=== PATIENT | female | born 1985 | race Caucasian/White ===

== ENCOUNTER 2017-03-24 05:47 | Observation (INO) ==
--- NOTE | 2017-03-24 06:03 | Emergency Department Note ---
Disposition Clinical Impression: Acute appendicitis Qualifiers: Acute appendicitis type: unspecified acute appendicitis type Qualified Code(s) : K35.80 - Unspecified acute appendicitis Disposition: Admitted As Inpatient Condition: Good Time of Disposition: 06:56 General Adult HPI - General Chief complaint: ED Abdominal Pain Stated complaint: states has enlarged appendix and gallstones Time Seen by Provider: 03/24/17 05:55 Source: patient Limitations: no limitations Nursing Notes Reviewed: Yes Vital Signs Reviewed: Yes - History of Present Illness HPI Narrative: Two-day history of right upper and right lower quadrant pain. Also nausea associated. Has tried [id number] pain medication as well as pain medication prescribed by her provider which she is unaware of the name of with no relief. No alleviating or provoking factors. Pain Scale: 8 - Related Data Previous Rx's Medication Instructions Recorded Ondansetron ODT [Zofran ODT] 4 mg SL Q8HR PRN #10 tab.rapdis 11/06/15 Phenazopyridine HCl [Pyridium] 200 mg PO TIDAC PRN #6 tab 11/06/15 Sulfamethoxazole/Trimeth DS 1 each PO BID #14 tablet 11/06/15 [Bactrim DS] Cyclobenzaprine [Flexeril] 10 mg PO HS PRN #10 tablet 04/30/16 Ibuprofen [Motrin] 600 mg PO Q6HR PRN #20 tab 04/30/16 Allergies Allergy/AdvReac Type Severity Reaction Status Date / Time No Known Allergies Allergy Verified 11/06/15 02:43 All systems ED: reviewed and negative except as stated. Constitutional: Denies: fever, chills Cardiovascular: Denies: chest pain, palpitations, dyspnea on exertion, edema, syncope Respiratory: Denies: cough, dyspnea, wheezes, hemoptysis, stridor Gastrointestinal: Reports: abdominal pain, nausea, vomiting. Denies: diarrhea, hematemesis, hematochezia Genitourinary: Reports: hematuria (One episode yesterday.). 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 Absent: scleral icterus - ENT ENT exam: normal exam, normal oropharynx, mucous membranes moist - Neck Neck exam: Present: normal inspection, full ROM, trachea midline. Absent: meningismus, lymphadenopathy - Chest Chest inspection: Present: normal inspection, symmetric chest wall rise - Respiratory Respiratory exam: Present: normal lung sounds bilaterally. Absent: respiratory distress - Cardiovascular Cardiovascular exam: Present: regular rate, normal rhythm, normal heart sounds - Abdominal Exam Abdominal exam: Present: soft, tenderness (Right upper and right lower quadrant. Appears worse in the right lower quadrant.), psoas sign, Issa's sign, tenderness at McBurney's Point. Absent: organomegaly - Extremities Exam Extremities exam: Present: normal inspection, full ROM. Absent: tenderness, pedal edema - Neurological Exam Neurological exam: Present: alert, oriented X3 - Psychiatric Psychiatric exam: Present: normal affect, normal mood - Skin Skin exam: Present: warm, dry, intact, normal color Course Course Narrative: Female patient complaining of right-sided abdominal pain presented to her primary care physician yesterday. A CT and lab work was done. She was found to have a mildly enlarged appendix with no periappendiceal stranding diagnostic of acute appendicitis as well as cholelithiasis. She states that she went home and was able to eat chicken tenders last night but has become nauseated and the abdominal pain is gone significantly worse. She appears in pain while she is resting in bed. She does have right upper and right lower quadrant abdominal pain. It appears as if the right lower quadrant is more tender than the right upper quadrant. She is nonfebrile she is here. Her lab work is unremarkable. We will provide patient with pain relief and antinausea medication will get a surgical consult. - Consultations Consultation #1: Spoke with Dr Rangel he will see patient in emergency department. Time: 06:36 Vital Signs Temperature 97.9 F 03/24/17 05:50 Pulse Rate 134 03/24/17 05:50 Respiratory Rate 18 03/24/17 05:50 Blood Pressure 126/75 03/24/17 05:50 O2 Sat by Pulse Oximetry 98 03/24/17 05:50 Temperature 97.9 F 03/24/17 05:50 Pulse Rate 97 03/24/17 06:35 Respiratory Rate 18 03/24/17 06:35 Blood Pressure 132/66 03/24/17 06:35 O2 Sat by Pulse Oximetry 100 03/24/17 06:35 Oxygen Delivery Oxygen Delivery Room Air Medical Decision Making - Lab Data Result diagrams: 03/24/17 06:17 03/24/17 06:17 Lab Results 03/24/17 03/24/17 03/24/17 Range/Units 06:00 06:00 06:17 WBC 5.2 (4.3-11.1) K/mcL RBC 4.92 (3.82-4.97) M/mcL Hgb 14.6 (11.5-15.4) g/dL Hct 42.9 (35.3-44.9) % MCV 87.2 (83.0-100.0) fL MCH 29.7 (28.0-33.3) pg MCHC 34.0 (31.6-35.5) g/dL RDW 12.3 (11.5-14.5) % Plt Count 279 (140-400) K/mcL MPV 9.5 (9.4-12.4) fL Immature Gran % 0.2 (0-4) % Seg Neutrophils % 51.7 % Lymphocytes % 35.6 % Monocytes % 9.6 % Eosinophils % 2.7 % Basophils % 0.2 % Neutrophils # 2.7 (1.6-8.9) K/mcL Lymphocytes # 1.9 (0.6-4.6) K/mcL Monocytes # 0.5 (0.0-1.3) K/mcL Eosinophils # 0.1 (0.0-0.6) K/mcL Basophils # 0.0 (0.0-0.2) K/mcL PT (9.4-12.1) Seconds INR APTT (26.0-36.0) Seconds Sodium (136-145) mEq/L Potassium (3.5-4.5) mEq/L Chloride (98-109) mEq/L Carbon Dioxide (19-29) mEq/L BUN (7-20) mg/dL Creatinine (0.57-1.11) mg/dL Est GFR ( Amer) (> 60) Est GFR (Non-Af Amer) (> 60) BUN/Creatinine Ratio (6-26) Glucose (70-99) mg/dL Calculated Osmolality (280-300) Calcium (8.6-10.8) mg/dL Total Bilirubin (0.2-1.2) mg/dL AST (5-34) Units/L ALT (0-55) Units/L Alkaline Phosphatase (38-126) Units/L Serum Total Protein (6.0-8.3) g/dL Albumin (3.5-5.0) g/dL Globulin (2.4-3.5) g/dL Albumin/Globulin Ratio (1.1-2.2) Urine Color Yellow (Yellow) Urine Clarity Cloudy A (Clear) Urine pH 5.5 (5.0-8.0) pH Units Ur Specific [place] 1.021 (1.010-1.025) Urine Protein Negative (Neg-Trace) mg/dL Urine Glucose (UA) Normal (Normal) mg/dL Urine Ketones 15 H (Negative) mg/dL Urine Blood Negative (Negative) Urine Nitrite Negative (Negative) Urine Bilirubin Negative (Negative) Urine Urobilinogen Normal (Normal) mg/dL Ur Leukocyte Esterase Moderate H (Negative) Urine Microscopic RBC 0-3 (0-3) per hpf Urine Microscopic WBC 15-30 H (0-3) per hpf Ur Squamous Epith Cells Many H (None-Few) per lpf Urine Bacteria Few (None-Few) per hpf Hyaline Casts None Seen (None-Few) per lpf Ur Culture Indicated? YES A (NO) Urine Test Negative (Negative) 03/24/17 03/24/17 Range/Units 06:17 06:17 WBC (4.3-11.1) K/mcL RBC (3.82-4.97) M/mcL Hgb (11.5-15.4) g/dL Hct (35.3-44.9) % MCV (83.0-100.0) fL MCH (28.0-33.3) pg MCHC (31.6-35.5) g/dL RDW (11.5-14.5) % Plt Count (140-400) K/mcL MPV (9.4-12.4) fL Immature Gran % (0-4) % Seg Neutrophils % % Lymphocytes % % Monocytes % % Eosinophils % % Basophils % % Neutrophils # (1.6-8.9) K/mcL Lymphocytes # (0.6-4.6) K/mcL Monocytes # (0.0-1.3) K/mcL Eosinophils # (0.0-0.6) K/mcL Basophils # (0.0-0.2) K/mcL PT 13.9 H (9.4-12.1) Seconds INR 1.3 APTT 32.3 (26.0-36.0) Seconds Sodium 140 (136-145) mEq/L Potassium 3.6 (3.5-4.5) mEq/L Chloride 108 (98-109) mEq/L Carbon Dioxide 22 (19-29) mEq/L BUN 8 (7-20) mg/dL Creatinine 0.84 (0.57-1.11) mg/dL Est GFR ( Amer) > 60 (> 60) Est GFR (Non-Af Amer) > 60 (> 60) BUN/Creatinine Ratio 10 (6-26) Glucose 102 H (70-99) mg/dL Calculated Osmolality 289 (280-300) Calcium 9.5 (8.6-10.8) mg/dL Total Bilirubin 0.5 (0.2-1.2) mg/dL AST 16 (5-34) Units/L ALT 16 (0-55) Units/L Alkaline Phosphatase 55 (38-126) Units/L Serum Total Protein 7.8 (6.0-8.3) g/dL Albumin 4.1 (3.5-5.0) g/dL Globulin 3.7 H (2.4-3.5) g/dL Albumin/Globulin Ratio 1.1 (1.1-2.2) Urine Color (Yellow) Urine Clarity (Clear) Urine pH (5.0-8.0) pH Units Ur Specific [place] (1.010-1.025) Urine Protein (Neg-Trace) mg/dL Urine Glucose (UA) (Normal) mg/dL Urine Ketones (Negative) mg/dL Urine Blood (Negative) Urine Nitrite (Negative) Urine Bilirubin (Negative) Urine Urobilinogen (Normal) mg/dL Ur Leukocyte Esterase (Negative) Urine Microscopic RBC (0-3) per hpf Urine Microscopic WBC (0-3) per hpf Ur Squamous Epith Cells (None-Few) per lpf Urine Bacteria (None-Few) per hpf Hyaline Casts (None-Few) per lpf Ur Culture Indicated? (NO) Urine Test (Negative) Attestation Statement - Attestation Attestation: I examined this patient and my medical decision-making was reviewed with the MEDICAL INSTRUCTOR/PA/Advanced Practice Nurse/Resident Physician. I agree with the documented findings, disposition and treatment plan as described except to the extent set forth below. Patient emergency department accompanied abdominal pain. Patient saw her PCP yesterday who ordered outpatient labs and a CT scan. The CT showed probable cholelithiasis with mild enlargement of the appendix. She states the pain is worsened. Is on her right side. She is nauseated. She cannot vomit. No fever. On exam she is laying in bed crying. Very anxious. Tenderness over the right lower quadrant at McBurney's point. She also has some right upper quadrant tenderness. There is no guarding here. Negative Issa sign. Plan. We will repeat labs. Discuss with surgery.
[2017-03-24] MEDS ORDERED: Ondansetron 4 MG/2 ML VIAL IVP ONE ×2 (06:16→13:49)
[2017-03-24 06:20] LABS: Bilirubin,Urine Negative (Negative); Blood,Urine Negative (Negative); Clarity,Urine Cloudy (Clear); Color,Urine Yellow (Yellow); Glucose,Urine (UA) Normal (Normal); Ketones,Urine 15 mg/dL (Negative); Leukocyte Esterase,Urine Moderate (Negative); Nitrite,Urine Negative (Negative); PH,Urine 5.5 pH Units (5.0-8.0); Protein,Urine Negative (Neg-Trace); Specific Gravity,Urine 1.021 (1.010-1.025); Urobilinogen,Urine Normal (Normal)
[2017-03-24 06:21] LABS: Basophils % 0.2 %; Eosinophils # 0.1 K/mcL (0.0-0.6); Eosinophils % 2.7 %; Hematocrit 42.9 % (35.3-44.9); Hemoglobin 14.6 g/dL (11.5-15.4); Immature Granulocytes % 0.2 % (0-4); Lymphocytes # 1.9 K/mcL (0.6-4.6); Lymphocytes % 35.6 %; Mean Corpuscular Hemoglobin 29.7 pg (28.0-33.3); Mean Corpuscular Volume 87.2 fL (83.0-100.0); Mean Platelet Volume 9.5 fL (9.4-12.4); Monocytes # 0.5 K/mcL (0.0-1.3); Monocytes % 9.6 %; Neutrophils # 2.7 K/mcL (1.6-8.9); Platelet Count 279 K/mcL (140-400); Red Blood Count 4.92 M/mcL (3.82-4.97); Red Cell Distribution Width 12.3 % (11.5-14.5); Segmented Neutrophils % 51.7 %
[2017-03-24 06:22] LABS: Bacteria,Urine Few per hpf (None-Few); Hyaline Casts,Urine None Seen per lpf (None-Few); RBC,Urine 0-3 per hpf (0-3); Squamous Epithelial Cell,Urine Many per lpf (None-Few); WBC,Urine 15-30 per hpf (0-3)
[2017-03-24 06:28] LABS: INR 1.3; Prothrombin Time 13.9 Seconds (9.4-12.1)
[2017-03-24 06:31] LABS: Activated Partial Thrombo Time 32.3 Seconds (26.0-36.0)
[2017-03-24 06:35] LABS: Alanine Aminotransferase 16 Units/L (0-55); Albumin 4.1 g/dL (3.5-5.0); Albumin/Globulin Ratio 1.1 (1.1-2.2); Alkaline Phosphatase 55 Units/L (38-126); Aspartate Amino Transferase 16 Units/L (5-34); BUN/Creatinine Ratio 10 (6-26); Bilirubin,Total 0.5 mg/dL (0.2-1.2); Blood Urea Nitrogen 8 mg/dL (7-20); Calcium 9.5 mg/dL (8.6-10.8); Carbon Dioxide 22 mEq/L (19-29); Chloride 108 mEq/L (98-109); Globulin 3.7 g/dL (2.4-3.5); Glucose 102 mg/dL (70-99); Osmolality,Calculated 289 (280-300); Potassium 3.6 mEq/L (3.5-4.5); Sodium 140 mEq/L (136-145); Total Protein 7.8 g/dL (6.0-8.3); eGFR For African Americans > 60 (> 60); eGFR For Non-African Americans > 60 (> 60)
[2017-03-24] MEDS ORDERED: *HR* FentaNYL (PF) 100 MCG/2 ML VIAL IVP ONE (06:35)
--- NOTE | 2017-03-24 07:33 | General Surg History&Physical ---
Date of Encounter: 03/24/17 Time of Encounter: 07:20 Assessment and Plan (1) Acute appendicitis Current Visit: Yes Status: Acute The assessment and plan as outlined above was discussed with the patient and/or family members who expressed understanding and agreement. All questions were answered. The patient appears to have acute retrocecal appendicitis. She will be admitted to the floor for pain medicine and antibiotics and we will perform urgent appendectomy later today. Qualifiers: Acute appendicitis type: with localized peritonitis Qualified Code(s): K35.3 - Acute appendicitis with localized peritonitis History of Present Illness Chief complaint: Right-sided abdominal pain HPI: Ms. Matta is a 31 year old female been in pain for 2 days. She sought evaluation in the emergency department. She complains of right mid abdominal pain and pain with motion. She has intense nausea she has had several episodes of vomiting. She has anorexia. She underwent CAT scan. The CAT scan demonstrates a dilated retrocecal appendix. She also has cholelithiasis. There is no pericholecystic fluid. I do not feel that the gallbladder is dilated. She denies shakes chills or fever. Her white blood cell count is normal. Clinical findings and CAT scan findings suggest acute appendicitis. We will plan urgent laparoscopic appendectomy. Past Med Surg Social Fam HX - Past Medical History Medical history: asthma Psychiatric history: no psych history - Social History Smoking Status: Never smoker Smokeless Tobacco Status: No Alcohol use: rarely Drug use: none Medications and Allergies Ondansetron ODT [Zofran ODT] 4 mg SL Q8HR PRN #10 tab.rapdis 11/06/15 [Rx] Phenazopyridine HCl [Pyridium] 200 mg PO TIDAC PRN #6 tab 11/06/15 [Rx] Sulfamethoxazole/Trimeth DS [Bactrim DS] 1 each PO BID #14 tablet 11/06/15 [Rx] Cyclobenzaprine [Flexeril] 10 mg PO HS PRN #10 tablet 04/30/16 [Rx] Ibuprofen [Motrin] 600 mg PO Q6HR PRN #20 tab 04/30/16 [Rx] Allergies No Known Allergies Allergy (Verified 11/06/15 02:43) Review of Systems All systems PM: A 10-system review of systems was performed and is negative for pertinent findings except as documented above in the HPI. General Surgery Exam Initial Vital Signs Temp Pulse Resp BP Pulse Ox 97.9 F 134 18 126/75 98 03/24/17 05:50 03/24/17 05:50 03/24/17 05:50 03/24/17 05:50 03/24/17 05:50 - General physical appearance well developed, well nourished, no distress - Neck no masses, no bruits, trachea midline, no lymphadectomy, no venous distension - Respiratory normal expansion, normal respiratory effort, clear to percussion, clear to auscultation - Cardiovascular Cardiovascular exam: Present: RRR, 15, 16 - Abdomen Abdomen general surgery: Present: tender, guarding Abdominal Tenderness: Present: RUQ (And right mid abdominal pain. Positive psoas sign) Hernia: Present: none - Neurologic Present: CN 2-12 grossly intact, normal coordination, normal sensation - Psychiatric Psychiatric general surgery: Present: appropriate, oriented to person, oriented to place, oriented to time, speech is normal, memory intact Results - Labs 03/24/17 06:17 03/24/17 06:17 Abnormal lab results PT 13.9 Seconds (9.4-12.1) H 03/24/17 06:17 Glucose 102 mg/dL (70-99) H 03/24/17 06:17 Globulin 3.7 g/dL (2.4-3.5) H 03/24/17 06:17 Urine Clarity Cloudy (Clear) A 03/24/17 06:00 Urine Ketones 15 mg/dL (Negative) H 03/24/17 06:00 Ur Leukocyte Esterase Moderate (Negative) H 03/24/17 06:00 Urine Microscopic WBC 15-30 per hpf (0-3) H 03/24/17 06:00 Ur Squamous Epith Cells Many per lpf (None-Few) H 03/24/17 06:00 Ur Culture Indicated? YES (NO) A 03/24/17 06:00 All other labs normal. - Imaging CT scan - abdomen: image reviewed (I personally reviewed the CAT scan images. The retrocecal appendix extends toward the right upper quadrant along the right flank. There is no periappendiceal stranding or inflammation however the appendix is dilated and appears to be obstructed. The gallbladder has no pericholecystic fluid she does have cholelithiasis. This appears to be acute retrocecal appendicitis)
[2017-03-24] MEDS ORDERED: Albuterol 2.5 MG/3 ML NEBULIZER IH ONE (12:52)
[2017-03-24] MEDS ORDERED: *HR* Propofol 200 MG/20 ML VIAL IVP ONE (12:54)
[2017-03-24] MEDS ORDERED: *HR* FentaNYL (PF) 100 MCG/2 ML VIAL ONE (12:54)
[2017-03-24] MEDS ORDERED: Lidocaine -MPF 4% 5 ML AMPUL ONE (12:54)
[2017-03-24] MEDS ORDERED: *HR* Rocuronium Bromide 50 MG/5 ML VIAL ONE (12:54)
[2017-03-24] MEDS ORDERED: Lidocaine -MPF 2% 2 ML VIAL ONE (12:54)
[2017-03-24] MEDS ORDERED: Albuterol 2.5 MG/3 ML NEBULIZER ONE (12:54)
[2017-03-24] MEDS ORDERED: *HR* Midazolam HCl 2 MG/2 ML VIAL ONE (12:54)
[2017-03-24] MEDS ORDERED: Ringers Solution, Lactated 1,000 ML IVC SCH ×2 (13:00→14:00)
--- NOTE | 2017-03-24 13:35 | Anesthesia Evaluation PreOp ---
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 Other Medical History: Denies Any Significant HX Anesthesia History: No Prior Anesthetic Complications, Past Anesthesia ( Hysteroscopy d and c) Test: Negative Alcohol Use: rarely Drug use: none Medications and Allergies Acetaminophen/Butalbital/Caffe [Fioricet] 1 tab PO AD PRN 03/24/17 [History] Dicyclomine [Bentyl] 20 mg PO TID 03/24/17 [History] Omeprazole [PriLOSEC] 20 mg PO DAILY 03/24/17 [History] Allergies Amoxicillin [From Augmentin] Adverse Reaction (Verified 03/24/17 10:41) Gastrointestinal Upset clavulanic acid [From Augmentin] Adverse Reaction (Verified 03/24/17 10:41) Gastrointestinal Upset - Meds/Allergy Pre-op Review Medications Reviewed: Yes Allergies Reviewed: Yes Beta Blockers on Current Med List: No Anesthesia Results - Labs 03/24/17 06:17 03/24/17 06:17 Anesthesia Exam Vital Signs/O2 Sat, Most Current Temp Pulse Resp BP Pulse Ox 97.7 F 82 12 133/84 100 03/24/17 11:14 03/24/17 11:14 03/24/17 13:03 03/24/17 13:03 03/24/17 13:03 Height: 1.7m Weight: 96.5kg NPO (# of Hours): acute abd - HEENT Pupil (Motor): Pupils equal, EOMI Mallampati: III Teeth: Poor dentition Oral Opening: Greater than 3 - BUSINESS ENGLISH INSTRUCTOR LOC: Oriented BUSINESS ENGLISH INSTRUCTOR Motor: Normal RUE, Normal LUE, Normal RLE, Normal LLE, Normal Face BUSINESS ENGLISH INSTRUCTOR Sensory: Normal: RUE, LUE, RLE, LLE, Face - Cardiac Rhythm: Regular - Pulmonary Breath Sounds: bilateral Clear Respiratory Effort: Symmetrical Anesthesia Assess/Plan ASA Score: 2, E Modified Kirklin Scale for Level of Consciousness: Cooperative, oriented, and tranquil Anesthetic Plan: General (r/b/a discussed questions answered, consent obtained) Monitoring Plan: Standard Monitors Recovery Plan: PACU
[2017-03-24] MEDS ORDERED: *HR* Meperidine 25 MG/ML SYRINGE IVP PRN (13:49)
[2017-03-24] MEDS ORDERED: *HR* Midazolam HCl 2 MG/2 ML VIAL IVP PRN (13:49)
[2017-03-24] MEDS ORDERED: *HR* Promethazine 25 MG/ML VIAL IVP PRN (13:49)
[2017-03-24] MEDS ORDERED: CefOXitin 2,000 MG VIAL IVPB ONE (13:58)
[2017-03-24] MEDS ORDERED: Neostigmine Methylsulfate 3 MG/3 ML SYRINGE ONE (14:15)
[2017-03-24] MEDS ORDERED: Dexamethasone 4 MG/ML VIAL ONE (14:15)
[2017-03-24] MEDS ORDERED: Ondansetron 4 MG/2 ML VIAL ONE (14:15)
--- NOTE | 2017-03-24 14:53 | Operative Note ---
Date of procedure: 03/24/17 Pre-op diagnosis: Acute appendicitis Post-op diagnosis: same Procedure: Laparoscopic appendectomy Anesthesia: RACHEL Surgeon: Primo Rangel Estimated blood loss (cc): 10 Specimen: Appendix Condition: stable Disposition: PACU Procedure in Detail: After informed consent patient was taken to the major operative suite placed in the supine position and given adequate general anesthetic. The abdomen is prepped and draped in sterile fashion utilizing ChloraPrep standard draping techniques. Timeout was taken patient was identified. Made a vertical midline incision below the umbilicus and dissected down to level of fascia. 2 traction stitches were placed of 0 Vicryl. The abdomen was entered visually and I placed a Gonzalez trocar. The trocar was secured. I insufflated to 15 mmHg pressure CO2. I placed a 5 mm trocar in the suprapubic area and a 12 mm trocar in the right upper quadrant. The appendix was retrocecal and acutely inflamed there was no free pus. Using electrocautery divided all lateral peritoneal attachments. The cecum and distal small bowel was completely mobilized. The appendix was completely mobilized. I opened the window between the base of the appendix and the mesoappendix. I passed the laparoscopic stapler through this opening and divided the appendix off the cecum with a gastrointestinal load on the stapler. I then mobilized the appendix on the mesoappendix. As usual, the mesial appendix was long and broad as is usually seen with retrocecal appendix. I used 2 vascular staple loads to divide the mesoappendix. There was no bleeding. I investigated all the staple lines that were all dry and intact. The appendix was removed in a specimen bag all trochars were removed. The fascia was closed with 0 Vicryl skin with 20 and 4-0 Vicryl. She tolerated the procedure well and is transferred to the recovery area in stable condition.
[2017-03-24] MEDS: *HR* HYDROmorphone (PF) 1 MG/ML SYRINGE IVP PRN ×7 (15:00→22:51)
--- NOTE | 2017-03-24 15:43 | Anesthesia Evaluation Post Op ---
Date of Encounter: 03/24/17 Time of Encounter: 15:41 - Vital Signs Vital Signs: Vital Signs/O2 Sat, Most Current Temp Pulse Resp BP Pulse Ox 98.6 F 84 16 114/71 98 03/24/17 15:25 03/24/17 15:35 03/24/17 15:35 03/24/17 15:35 03/24/17 15:35 - Lungs Lungs: Clear Ascult./Percussion - Airway Airway: Non-obstructed - Cardiovascular Regular Rate - Mental Status Mental Status: Alert & Oriented, Answers Appropriately - Pain Pain Scale used: Numeric (1 - 10) (tolerable) - Nausea Vomiting Nausea Vomiting: Not Present - Hydration Hydration: Ice chips - Discharge PostOp Status: Transfer Patient to floor Attestation: I have assessed this patient and find they meet discharge criteria.
[2017-03-24] MEDS ORDERED: Ondansetron 4 MG/2 ML VIAL IVP PRN (15:59)
[2017-03-24] MEDS ORDERED: 0.9 % Sodium Chloride 1,000 ML IVC SCH (15:59)
[2017-03-24] MEDS ORDERED: cefOXitin 2,000 MG in D5% in Water (Mini-Bag+) 100 ML IVPB SCH (15:59)
[2017-03-24] MEDS: 0.9 % Sodium Chloride 1,000 ML IVC SCH (17:58)
[2017-03-24] MEDS: cefOXitin 2,000 MG in D5% in Water (Mini-Bag+) 100 ML IVPB SCH (19:18)
[2017-03-24] MEDS: *HR* OxyCODONE/APAP 5/325 TABLET PO PRN (22:52)
[2017-03-25] MEDS: 0.9 % Sodium Chloride 1,000 ML IVC SCH (02:34)
[2017-03-25] MEDS: cefOXitin 2,000 MG in D5% in Water (Mini-Bag+) 100 ML IVPB SCH (02:34)
[2017-03-25] MEDS: *HR* HYDROmorphone (PF) 1 MG/ML SYRINGE IVP PRN (04:18)
[2017-03-25 07:22] VITALS: BP 113/70
[2017-03-25] MEDS: *HR* OxyCODONE/APAP 5/325 TABLET PO PRN (07:46)
--- NOTE | 2017-03-25 09:18 | Discharge Summary ---
Date of Encounter: 03/25/17 Time of Encounter: 09:00 - Discharge Diagnosis (1) Acute appendicitis Priority: Primary Status: Acute Qualifiers: Acute appendicitis type: with localized peritonitis Qualified Code(s): K35.3 - Acute appendicitis with localized peritonitis - Discharge Medications Prescriptions: HYDROcodone/Acet 5/325 mg [[place] 5-325 mg] 1 tab PO Q4H PRN #36 tab PRN Reason: Pain Home Medications: Acetaminophen/Butalbital/Caffe [Fioricet] 1 tab PO AD PRN 03/24/17 [History] Dicyclomine [Bentyl] 20 mg PO TID 03/24/17 [History] Omeprazole [PriLOSEC] 20 mg PO DAILY 03/24/17 [History] HYDROcodone/Acet 5/325 mg [[place] 5-325 mg] 1 tab PO Q4H PRN #36 tab 03/25/17 [Rx ] Allergies/Adverse Reactions: Allergies Amoxicillin [From Augmentin] Adverse Reaction (Verified 03/24/17 10:41) Gastrointestinal Upset clavulanic acid [From Augmentin] Adverse Reaction (Verified 03/24/17 10:41) Gastrointestinal Upset General Surgery Exam Initial Vital Signs Temp Pulse Resp BP Pulse Ox 97.9 F 134 18 126/75 98 03/24/17 05:50 03/24/17 05:50 03/24/17 05:50 03/24/17 05:50 03/24/17 05:50 - General physical appearance well developed, well nourished, no distress - Respiratory normal expansion, normal respiratory effort, clear to percussion, clear to auscultation - Cardiovascular Cardiovascular exam: Present: RRR, 15, 16 - Abdomen Abdomen general surgery: Present: bowel sounds present, soft, non tender - Incision Incision: Present: clean and dry - Neurologic Present: CN 2-12 grossly intact, normal coordination, normal sensation - Musculoskeletal Present: normal gait, normal posture Date of admission: 03/24/17 06:48 Primary care physician: Dominique Laurenao CNP Discharging clinician: Primo Rangel Anticipated date of discharge: 03/25/17 - Patient Status Disposition: Home, Self-Care Functional capacity at discharge: independent ambulation Overall status at discharge: patient is progressing back to baseline - Discharge Instructions Follow Up With: NO,PCP [Non-Partnered Physician] - Primo Rangel MD [Partnered Physician] - - Diet and Activity Activity: increase activity as tolerated Diet: advance to your usual diet - Hospital Course Hospital course: Ms. Matta is a 31 year old female The patient underwent laparoscopic appendectomy and has had resolution of her preoperative pain syndrome. She is ready for discharge. - Time Spent with Patient Total time spent providing and/or coordinating discharge services: Less than 30 minutes Labs on day of discharge: Labs from last 24 hours 03/24/17 11:11 POC Glucose 83
== END 2017-03-25 12:38 | disposition home or self-care (01) ==
LOC: EMEROO 05:47 → 3ANU 05:47
PROVIDERS: ADMIT Surgery; ATTEND Surgery

== ENCOUNTER 2020-04-18 11:46 | Observation (INO) ==
[2020-04-18 12:09] LABS: Bilirubin,Urine Negative (Negative); Blood,Urine Small (Negative); Glucose,Urine (UA) Normal (Normal); Ketones,Urine Negative (Negative); Leukocyte Esterase,Urine Negative (Negative); Nitrite,Urine Positive (Negative); PH,Urine 6.5 pH Units (5.0-8.0); Protein,Urine Negative (Neg-Trace); Specific Gravity,Urine 1.008 (1.010-1.025); Urobilinogen,Urine Normal (Normal)
[2020-04-18 12:11] LABS: Bacteria,Urine None Seen per hpf (None-Few); Hyaline Casts,Urine None Seen per lpf (None-Few); RBC,Urine 0-3 per hpf (0-3); Squamous Epithelial Cell,Urine Moderate per lpf (None-Few); WBC,Urine 0-3 per hpf (0-3)
[2020-04-18 12:15] LABS: Clarity,Urine Clear (Clear); Color,Urine Dark Yellow (Yellow)
[2020-04-18] MEDS: 0.9 % Sodium Chloride 1,000 ML IVC ONE ×2 (12:48→15:32)
[2020-04-18] MEDS: Ondansetron 4 MG/2 ML VIAL IVP ONE ×2 (12:48→14:14)
[2020-04-18 12:56] LABS: Hematocrit 42.4 % (35.3-44.9); Hemoglobin 13.9 g/dL (11.5-15.4); Mean Corpuscular HGB Conc 32.8 g/dL (31.6-35.5); Mean Corpuscular Hemoglobin 30.2 pg (28.0-33.3); Mean Platelet Volume 9.5 fL (9.4-12.4); Platelet Count 226 K/mcL (140-400); Red Blood Count 4.61 M/mcL (3.82-4.97); Red Cell Distribution Width 12.2 % (11.5-14.5); White Blood Count 7.9 K/mcL (4.3-11.1)
[2020-04-18 13:13] LABS: BUN/Creatinine Ratio 8 (6-26); Blood Urea Nitrogen 8 mg/dL (6-20); Calcium 8.8 mg/dL (8.6-10.3); Carbon Dioxide 25 mEq/L (23-29); Chloride 107 mEq/L (98-107); Glucose 89 mg/dL (70-105); Osmolality,Calculated 284 (280-300); Potassium 3.6 mEq/L (3.5-5.1); Sodium 138 mEq/L (136-145); eGFR For African Americans > 60 (> 60); eGFR For Non-African Americans > 60 (> 60)
[2020-04-18] MEDS ORDERED: cefTRIAXone 2,000 MG in Water for inj. (sterile) 20 ML IVP ONE (13:49)
[2020-04-18] MEDS ORDERED: Ondansetron 4 MG/2 ML VIAL IVP PRN (14:41)
[2020-04-18] MEDS ORDERED: Naloxone 0.4 MG/ML INJ IVP PRN (14:41)
[2020-04-18] MEDS ORDERED: Ringers Solution, Lactated 1,000 ML IVC SCH (14:45)
[2020-04-18] MEDS: Ketorolac 15 MG/ML VIAL IVP PRN (15:32)
[2020-04-18] MEDS ORDERED: *HR* Promethazine 25 MG/ML VIAL IVP PRN (15:38)
[2020-04-18] MEDS: Albuterol 2.5 MG/3 ML NEBULIZER IH PRN (20:32)
[2020-04-18] MEDS ORDERED: traZODone 50 MG TABLET PO SCH (21:00)
[2020-04-18] MEDS ORDERED: QUEtiapine Fumarate 100 MG TABLET PO SCH (21:00)
[2020-04-19] MEDS: Albuterol 2.5 MG/3 ML NEBULIZER IH PRN (05:20)
[2020-04-19 06:49] VITALS: BP 102/66
[2020-04-19] MEDS: Ketorolac 15 MG/ML VIAL IVP PRN (09:52)
[2020-04-19] MEDS ORDERED: cefTRIAXone 2,000 MG in Water for inj. (sterile) 20 ML IVP SCH (15:00)
== END 2020-04-19 11:09 | disposition home or self-care (01) ==
LOC: EMEROOARM 11:46 → 3ANU 11:46 → SUATTDRO 15:50 → 3ANU 16:54
PROVIDERS: ADMIT Internal Medicine; ATTEND Internal Medicine